=== PATIENT | female | born 1990 | race Caucasian/White ===

== ENCOUNTER 2016-07-21 16:40 | Emergency (ER) | payer OTHER ==
[~2016-07-21] VITALS: Ht 162.6 cm; Wt 54.5 kg
[~2016-07-21 16:40] MED LIST: NOMED
[2016-07-21 16:53] VITALS: BP 116/75; PULSE 79; RESP 16; O2SAT 99
[2016-07-21 17:46] LABS: BASOPHILS % (AUTO) 0.3 % (0-3); EOSINOPHILS % (AUTO) 2.2 % (0-5); MONOCYTES % (AUTO) 8.4 % (4-12); Mean Corpuscular Hemoglobin 30.7 pg (27.0-35.0); Mean Corpuscular Volume 90.6 fL (81-100); NEUTROPHILS % (AUTO) 43.5 % (40-74); Platelet Count 213 bil/L (150-400)
[2016-07-21 18:12] LABS: Magnesium 2.2 mg/dL (1.6-2.6)
--- NOTE | 2016-07-21 18:36 | ED.REPORT ---
HPI-GI Bleed Date of Service Jul 21, 2016 ED Provider: Doc,Ed MD History of Present Illness: 25yo female reports she vomited 1 cup of yeyo bright red blood last night following episode of nausea and vomiting. Went to Urgent care today and advised to come to ED for further evaluation. She has mild epigastric pain, no vomiting today. No melena or rectal bleeding. Denies alcohol use. She does smoke marijuana. Nursing Notes Stated Complaint: VOMITING BLOOD,SENT BY Chief Complaint: Female Abdominal Pain Nursing Notes Reviewed: Yes Allergies: Coded Allergies: No Known Allergies (Unverified , 07/21/16) Scheduled Famotidine (Pepcid) 20 Mg Tablet 20 MG PO BID Scheduled PRN Ondansetron ODT (Zofran ODT) 8 Mg Tablet 8 MG PO QID PRN PRN For Nausea Miscellaneous Medications No Historical Medication (No Historical Medication) Ea General Time Seen by Provider: 18:36 Chief Complaint Chief Complaint: Vomiting bright red blood Hx Obtained From: Patient Arrived By: Walk-in Onset Occurred: Yesterday Context of Onset: Spontaneous bleeding Progression Since Onset: Gradually improving Location: : Epigastric Quality: Dull Radiation: : Does not radiate Severity: Current: Mild Severity: Maximum: Mild Recent Healthcare: No recent doctor visit Similar Sx Previous: No Risk-GI Bleed Bleeding Risk Stratification RF Statements: No risk factors Past Medical History Past Medical History Healthy young woman Past Surgical History denies Smoking History Never Smoker Social History smokes marijuana often Alcohol Use: Denies alcohol use Drug Use: THC Ambulatory Status Independent Review of Systems Constitutional: Denies: Chills, Fever Respiratory: Denies: Shortness of breath Cardiovascular: Denies: Chest pain GI: Reports: Abdominal pain, Hematemesis, Nausea, Vomiting, Denies: Hematochezia, Melena Complete sys rev & neg: except as marked. Physical Exam Initial Vital Signs Vital Signs (First) Date Time Temp Pulse Resp B/P Pulse Ox O2 Delivery O2 Flow Rate FiO2 07/21/16 16:53 36.7 79 16 116/75 99 Room Air Initial VS: Vital signs normal General/Constitutional: Awake, Alert, No acute distress, Well hydrated, Not toxic appearing Respiratory / Chest: Atraumatic, Breath sounds NL, Breath sounds = bilat, No respiratory distress Cardiovascular: Heart rate NL, Regular rhythm, Heart sounds NL Abdomen: Atraumatic, Soft, Non-tender, No guarding, No rebound, BS normoactive Interpretation & Diagnostics Interpretation & Diagnostics: Bedside preg negative Lab Results Interpretation Result Diagram: 07/21/16191407/21/161914 Test 07/21/16 17:38 07/21/16 18:20 07/21/16 19:15 Magnesium Level 2.2mg/dL (1.6-2.6) Lipase 25U/L (13-60) Hold Gomez Top Tube Received (Received) Urine Color Yellow (YELLOW) Urine Appearance Cloudy (CLEAR,HAZY) Urine pH 8.0 (5.0-8.0) Urine Specific Welch 1.015 (1.003-1.035) Urine Protein Negativemg/dL (NEG,TRACE) Urine Glucose (UA) Negativemg/dL (NEGATIVE) Urine Ketones Negativemg/dL (NEGATIVE) Urine Occult Blood Trace (NEGATIVE) Urine Nitrite Negative (NEGATIVE) Urine Bilirubin Negative (NEGATIVE) Urine Urobilinogen Normalmg/dL (NORMAL) Urine Leukocyte Esterase Negative (NEGATIVE) Urine RBC 0-2/hpf (0-2) Urine WBC 0-5/hpf (0-5) Urine Epithelial Cells Few/hpf (NONE-MOD) Urine Crystals None seen (NONE SEEN) Urine Bacteria Few/hpf (NONE-FEW) Urine Hyaline Casts None/lpf (NONE) Urine Granular Casts None seen (NONE SEEN) Urine Waxy Casts None seen (NONE SEEN) Urine Red Blood Cell Casts None seen (NONE SEEN) Urine White Blood Cell Casts None seen (NONE SEEN) Urine Mucus None seen (None Seen) Urine Trichomonas None seen (NONE SEEN) Urine Yeast None (NONE SEEN) Urinalysis Comment Amorphous sediment Urine Culture Reflexed Not indicated White Blood Count 7.7th/mm3 (3.8-10.1) Red Blood Count 4.19mil/mm3 (3.90-5.20) Hemoglobin 13.1g/dL (12.0-15.6) Hematocrit 37.9% (35.0-46.0) Mean Corpuscular Volume 90.5fL (81-100) Mean Corpuscular Hemoglobin 31.3pg (27.0-35.0) Mean Corpuscular Hemoglobin Concent 34.6% (32.0-37.0) Red Cell Distribution Width 12.2% (12.3-15.4) Platelet Count 208bil/L (150-400) Neutrophils (%) (Auto) 38.9% (40-74) Lymphocytes (%) (Auto) 51.7% (14-46) Monocytes (%) (Auto) 7.3% (4-12) Eosinophils (%) (Auto) 1.7% (0-5) Basophils (%) (Auto) 0.3% (0-3) Prothrombin Time 10.8sec (8.1-12.5) Prothromb Time International Ratio 1.01ratio Sodium Level 140mEq/L (134-144) Potassium Level 3.8mEq/L (3.5-5.2) Chloride Level 103mEq/L (97-108) Carbon Dioxide Level 24mmol/L (18-29) Blood Urea Nitrogen 14mg/dL (6-20) Creatinine 0.60mg/dL (0.57-1.00) Estimat Glomerular Filtration Rate 176mL/min (>59) Glucose Level 88mg/dL (60-99) Calcium Level 9.3mg/dL (8.5-10.1) Total Bilirubin 0.6mg/dL (0.0-1.2) Aspartate Amino Transf (AST/SGOT) 21U/L (0-50) Alanine Aminotransferase (ALT/SGPT) 14U/L (0-32) Alkaline Phosphatase 45U/L (25-150) Total Protein 7.4g/dL (6.4-8.4) Albumin 4.5g/dL (3.4-5.0) Re-Eval/Medical Decision Med Decision/Clinical Course Pt. evaluated by Dr. Tamayo who concurs no compelling clinical indication for imaging at present. Possible Destiny-Munoz tear, spontaneously resolved. Repeat labs do not show any drop in H/H. Will treat with bland diet, Zofran, and Pepcid, f/u with PCP. S/s for which to return to ED discussed. Pt. acknowledged understanding of treatment plan. Counseled Regarding: Diagnosis, Lab results, Need for follow-up, When/why to return to ED Discharge & Departure Shift Change Sign-Out Response to Therapy: Improved Impression: Primary Impression: Hematemesis Nausea presence: with nausea Qualified Code: K92.0 - Hematemesis Disposition: Home Patient Instructions: Hematemesis (ED) Additional Instructions: [place] diet, take Zofran as needed for nausea. Stop using marijuana as that causes a lot of vomiting. Take Pepcid as prescribed. Follow up with your PCP next week for recheck. Return to ER if anything worsens. Referrals: Dewey Spaulding MD (PCP) 3 to 4 Days recheck EDSupervising Provider for APC: Gladys Tamayo MD Attending Statement I spent [id number] time with this patient and examined her and agree with the assessment, plan, and disposition. copies to: Dewey Spaulding MD, [facility] Jul 21, 2016 18:36 Gladys Tamayo MD Jul 21, 2016 22:22
[2016-07-21 18:37] LABS: APPEARANCE,URINE CLOUDY (CLEAR,HAZY); COLOR,URINE YELLOW (YELLOW); OCCULT BLOOD,URINE TRACE (NEGATIVE); UROBILINOGEN,URINE NORMAL (NORMAL)
[2016-07-21] MEDS ORDERED: Pantoprazole 4 mg/mL 10 mL Inj IVPUSH ONE (18:45)
[2016-07-21] MEDS ORDERED: 0.9% Sodium Chloride 1,000 ML IV SCH (18:45)
[2016-07-21 19:32] LABS: BASOPHILS % (AUTO) 0.3 % (0-3); EOSINOPHILS % (AUTO) 1.7 % (0-5); MONOCYTES % (AUTO) 7.3 % (4-12); Mean Corpuscular Hemoglobin 31.3 pg (27.0-35.0); Mean Corpuscular Volume 90.5 fL (81-100); NEUTROPHILS % (AUTO) 38.9 % (40-74); Platelet Count 208 bil/L (150-400)
[2016-07-21 19:44] LABS: INR 1.01 ratio
[2016-07-21] MEDS ORDERED: FAMO20T PO (20:40)
[2016-07-21] MEDS ORDERED: ONDA8TAB7 PO (20:40)
[2016-07-21 21:06] VITALS: BP 112/71; PULSE 67; O2SAT 99
== END 2016-07-21 21:07 | disposition home or self-care (01) ==
LOC: SED 16:40
DX: K92.0 Hematemesis (principal); F12.10 Cannabis abuse, uncomplicated
CPT/HCPCS: 36415; 80053; 81000; 81025; 83690; 83735; 85025; 85610; 96361; 96374; 99284; J7030

== ENCOUNTER 2016-09-04 07:19 | Day surgery (SDC) | payer OTHER ==
[~2016-09-04] VITALS: Ht 160 cm; Wt 54.4 kg
[~2016-09-04 07:19] MED LIST changes: +FAMO20T PO; +ONDA8TAB7 PO
[2016-09-04 07:32] VITALS: BP 115/71; PULSE 67; RESP 16; O2SAT 100
[2016-09-04] MEDS ORDERED: fentaNYL-PF 50 mCg/mL 2 mL Inj IVPUSH PRN (07:45)
[2016-09-04] MEDS ORDERED: Sodium Chloride LOK Flush 10 mL Syringe IV PRN (07:45)
[2016-09-04] MEDS: 0.9% Sodium Chloride 1,000 ML IV PRN ×2 (07:59→08:18)
--- NOTE | 2016-09-04 08:21 | PCM.ENDEGD ---
EGD Date of Service: Sep 04, 2016 Physician Cornell Pulido MD Pre Procedure Diagnosis: Abdominal Pain hematemesis Post Procedure Dx & Findings: Gastric ulcers Procedure Esophagogastroduodenoscopy PROCEDURE IN DETAIL: After proper sedation, Olympus video endoscope was inserted into patient's mouth and esophagus was successfully intubated. Scope introduced esophagus. Esophagus showed normal shiny whitish mucosa consistent with squamous cell component. Z line was intact at 40 cm from the incisors. Stomach further events to the stomach. In the proximal antrum and distal body, there were 3 healing ulcers. There were all 1 cm or so. And linear. Biopsies are obtained on all 3 ulcers. Cardia fundus body antrum pylorus were all visualized. Retroflexion was done. Stomach was easily inflated and deflatable using air. Scope further events to the distal duodenum. Duodenum revealed normal villous structures with normal appearing folds without any mass ulcer erosion. 5 biopsies obtained to rule out celiac disease for abdominal pain and diarrhea. Impression Gastric ulcers Recommendation Prilosec 20 mg once a day for 6 weeks. Await biopsies If diarrhea persists, consider colonoscopy if patient does not have celiac disease. Follow-up in the GI clinic with the physician's broker assistant. Presedation Assessment Risks and Benefits Informed consent was obtained from the patient after all risks and benefits including but not limited to drug reaction, infection, pain, bleeding, perforation, as well as alternatives were discussed. Patient monitoring Continuous pulse oximetry, cardiac monitoring, blood pressure monitoring, IV access, and oxygen at 2L per nasal cannula. Periprocedural Fentanyl: Fentanyl 125mcg Incrementally Midazolam: Midazolam 6mg Incrementally Complications There were no periprocedural complications identified. Post Procedure Plan Post Procedure Recommendations 1. Restrict activities today. 2. Resume normal activities in the morning. 3. Resume medications. 4. GERD behavioral modification: - Avoid fatty, acidic, spicy, large meals - Do not lie down after meals - Do not eat or drink anything for at least 2 1/2 hours before going to bed at night - Discontinue tobacco and alcohol - Decrease or avoid caffeine - Avoid chocolate and mints - Decrease weight - Avoid aspirin and non steroidal anti-inflammatory agents (NSAID) such as Aleve, Advil, Mobic, Naproxen, Ibuprofen, etc 5. Add proton pump inhibitor. Take 30 minutes before 1st meal of the day. 6. Patient informed of normal post procedure side effects as bloating, drowsiness, blood streaking in the stool 7. If gastric biopsy reveal H.pylori, continue with appropriate treatment 8. If small bowel biopsy reveals celiac, continue with appropriate treatment 9. Please don't hesitate to call me with any questions Cornell Pulido MD Sep 04, 2016 08:21
[2016-09-04 08:23] VITALS: BP 97/61; PULSE 55; RESP 16; O2SAT 97
[2016-09-04 08:35] VITALS: BP 101/61; PULSE 88; RESP 16; O2SAT 99
[2016-09-04 08:48] VITALS: BP 101/61; PULSE 54; RESP 16; O2SAT 99
--- NOTE | 2016-09-05 11:31 | PATH ---
SURGICAL PATHOLOGY Attending Physician:Cornell Pulido M.D. CASE STATUS: Signed Out PATIENT NAME: LEI POLANCO PID: [id number] : 1990 DATE COLLECTED:09/04/2016 16:14 SPECIMEN: 1: Duodenum, Biopsy 2: Gastric, Biopsy CLINICAL HISTORY: 1). DUODENAL BIOPSY 2). GASTRIC ULCER BIOPSY FINAL DIAGNOSIS: 1.DUODENAL BIOPSY: CHANGES OF CHRONIC DUODENITIS WITH FOCAL FOVEOLAR METAPLASIA AND FOCAL MUCOSAL SCARRING. Negative for evidence of celiac disease. Negative for dysplasia and malignancy. 2.GASTRIC ULCER BIOPSY: DIFFUSE MILD CHRONIC GASTRITIS INVOLVING FUNDIC AND ANTRAL MUCOSA WITH NO DEFINITE ULCERATION NOTED. Immunohistochemistry for Helicobacter pending, to be reported by addendum. Negative for intestinal metaplasia. Negative for dysplasia and malignancy. ICD10 K29.70 GROSS DESCRIPTION: The specimen is received in two formalin filled containers labeled with the patient's name. 1). The specimen is labeled "duodenal and "and consists of 4 portions of tissue which aggregate to 0.3 x 0.3 x 0.2 CM. The specimen is entirely submitted in cassette 1A. 2). The specimen is labeled "gastric ulcer" and consists of 4 portions of tissue which aggregate to 2.5 x 0.5 x 0.2 seen. The specimen is entirely submitted in cassette 2A. 09/04/2016TN MICRO DESCRIPTION: See diagnosis. ICD-9 CODES: CPT CODES: 1: 31621 2: 80764, 15305 Electronically Signed Out Ervin Pizano MD [facility] Pathology [facility] [address] [facility], [place] [address] Technical component performed at [facility], [address] [place] [address] [address], [place], [address]
== END 2016-09-04 23:59 | disposition home or self-care (01) ==
LOC: END 07:19
PROVIDERS: ATTEND Internal Medicine
DX: K29.50 Unspecified chronic gastritis without bleeding (principal); K29.80 Duodenitis without bleeding; K25.9 Gastric ulcer, unspecified as acute or chronic, without hemorrhage or perforation
CPT/HCPCS: 43239; G0500; J2250; J3010; J7030

== ENCOUNTER → 2016-10-26 | Day surgery (SDC) | payer OTHER ==
[~2016-10-26] VITALS: Ht 160 cm; Wt 54.5 kg
[~2016-10-26] MED LIST changes: -FAMO20T PO; -NOMED; -ONDA8TAB7 PO; +Sodium Chloride LOK Flush 10 mL Syringe IV PRN; +fentaNYL-PF 50 mCg/mL 2 mL Inj IVPUSH PRN; +fentaNYL-PF 50 mCg/mL 2 mL Inj ONE
[2016-10-26 07:52] VITALS: BP 118/77; PULSE 71; RESP 16; O2SAT 100
[2016-10-26] MEDS: 0.9% Sodium Chloride 1,000 ML IV PRN ×2 (08:17→08:29)
--- NOTE | 2016-10-26 08:36 | PCM.ENDCOL ---
Colonoscopy Date of Service: Oct 26, 2016 Physician Cornell Pulido MD Pre Procedure Diagnosis: diarrhea Post Procedure Dx & Findings: hemmorhoids Procedure Colonoscopy PROCEDURE IN DETAIL: Prep adequate Withdrawal time 11 minutes After unremarkable rectal examination the Olympus video colonoscope was inserted patient's anal canal and was advanced to cecum. Landmarks were identified including the ileocecal valve and appendiceal orifice. Scope further events the terminal ileum. Terminal ileum show normal villous structures without any ulcer mass erosion. Scope was withdrawn systematically. Visualized colonic mucosa showed healthy shiny mucosa with normal healthy- appearing vasculature. Random biopsies taken from the cecum to the rectum. In the rectum retroflexion was done which showed hemorrhoids. Anal canal was inspected carefully on the way out and hemorrhoids noted. Impression Normal TI Normal colon Hemorrhoids Recommendation Await biopsy Follow-up in the GI clinic with Huyen Parsons Presedation Assessment Risks and Benefits Informed consent was obtained from the patient after all risks and benefits including but not limited to drug reaction, infection, pain, bleeding, perforation, as well as alternatives were discussed. Patient monitoring Continuous pulse oximetry, cardiac monitoring, blood pressure monitoring, IV access, and oxygen at 2L per nasal cannula. Periprocedural Fentanyl: Fentanyl 125mcg Incrementally Midazolam: Midazolam 6mg Incrementally Diphenhydramine: Diphenhydramine 25 mg IV Complications There were no periprocedural complications identified. Post Procedure Plan Post Procedure Recommendations 1. Restrict activities today. 2. Resume normal activities in the morning. 3. Resume medications. 4. Patient informed of normal post procedure side effects as bloating, drowsiness, blood streaking in the stool. 5. average risk CRCS. If colon polyps come back as: -Hyperplastic- can repeat colonoscopy in 10 years -Tubular adenoma- repeat colonoscopy in 5 years -Tubulovillous/villous adenoma- repeat colonoscopy in 3 years -If any dysplasia- return to clinic as soon as possible 6. Please don't hesitate to call me with any questions. Cornell Pulido MD Oct 26, 2016 08:36
[2016-10-26 08:38] VITALS: BP 108/63; PULSE 74; O2SAT 100
[2016-10-26 08:48] VITALS: BP 114/65; PULSE 70; RESP 16; O2SAT 100
--- NOTE | 2016-10-30 15:16 | PATH ---
SURGICAL PATHOLOGY Attending Physician:Cornell Pulido M.D. CASE STATUS: Signed Out PATIENT NAME: LEI POLANCO PID: [id number] : 1990 DATE COLLECTED:10/26/2016 19:33 SPECIMEN: Colon, Biopsy CLINICAL HISTORY: DIARRHEA 1). RANDOM COLON BIOPSY FINAL DIAGNOSIS: Random Colon, Biopsies: Colonic mucosa with no diagnostic abnormality. Negative for active or microscopic colitis. Negative for granulomata, dysplasia or malignancy. ICD10: R19.7 GROSS DESCRIPTION: The specimen is received in one formalin filled container labeled with the patient's name, sublabeled "random colon" and consists of multiple portions of tissue which aggregate to 0.4 x 0.4 x 0.2 CM. The specimen is entirely submitted in one cassette. 10/26/2016DC ICD-9 CODES: CPT CODES: 1: 40121 Electronically Signed Out Yair Haro MD, Ph.D. [facility] Pathology [facility] [facility] [facility] [place] [address] Technical component performed at [facility], [address] [place] [address] Ave[address], [place], [address]
== END | disposition home or self-care (01) ==
LOC: END 01:04
PROVIDERS: ATTEND Internal Medicine
DX: R19.7 Diarrhea, unspecified (principal); K64.8 Other hemorrhoids; K29.50 Unspecified chronic gastritis without bleeding; G54.0 Brachial plexus disorders; M94.0 Chondrocostal junction syndrome [Tietze]
CPT/HCPCS: 45380; 99153; G0500; J1200; J2250; J3010; J7030